=== PATIENT | female | born 2000 | race Caucasian/White ===

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

== ENCOUNTER 2022-04-26 10:39 | Outpatient (CLI) | payer OTHER, SELFPAY ==
--- NOTE | ~2022-04-26 | XR_ITS ---
EXAMINATION: XR foot LT min 3V DATE: 04/26/2022 11:02 INDICATION: Left foot pain TECHNIQUE: Dorsoplantar, lateral, and 2 oblique views of the left foot were obtained. COMPARISON: None. FINDINGS: There is dorsal soft tissue swelling of the foot. Bone alignment is normal. There is no fra cture. The joint spaces are normal. IMPRESSION: 1. Dorsal soft tissue swelling foot without acute osseous abnormalities. Reviewed, dictated and finalized at location F.
== END 2022-04-26 10:40 | disposition home or self-care (01) ==
PROVIDERS: PCP Family Medicine; Visit Provider Family Medicine
DX: S99.922A Unspecified injury of left foot, initial encounter (principal); M79.89 Other specified soft tissue disorders
CPT/HCPCS: 73630

== ENCOUNTER 2022-10-28 11:16 | Outpatient (CLI) | payer OTHER, SELFPAY ==
[2022-10-28 12:35] LABS: Beta HCG Quantitative < 2.39 mIU/ML
== END 2022-10-28 11:17 | disposition home or self-care (01) ==
LOC: ANHLAB 11:18
PROVIDERS: PCP Family Medicine; Visit Provider Obstetrics & Gynecology
DX: Z30.42 Encounter for surveillance of injectable contraceptive (principal)
CPT/HCPCS: 36415; 84702

== ENCOUNTER 2023-09-05 14:07 | Emergency (ER) | payer OTHER, SELFPAY ==
--- NOTE | ~2023-09-05 | CT_ITS ---
EXAMINATION: CT chest abdomen pelvis w con DATE: 09/05/2023 16:26 CDT INDICATION: Chest, abdomen and pelvic pain after fall off horse TECHNIQUE: Computed tomography (CT) of the chest, abdomen, and pelvis was performed with 100 cc Omnip aque 350 intravenous contrast. The dose-length product was 353.30 mGy-cm. Automated exposure control and iterative reconstruction technique were employed. COMPARISON: None FINDINGS: CHEST, abdomen and pelvis CT: No thoracic lymphadenopathy. No significant pleural or pericardial effusion. No vascular abnormality. There is a retroaortic left renal vein. The liver, spleen, pancreas, adrenal glands and left kidney are unremarkable. 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 No endobronchial lesions. No pneumothorax. No focal airspace consolidation. No suspicious pulmonary n odules or masses. No evidence for aortic aneurysm or dissection. No abdominal or pelvic lymphadenopat hy. No free air or free fluid. Nonobstructive bowel gas pattern. No acute osseous abnormality. IMPRESSION: 1. No acute abnormality of the chest, abdomen or pelvis. Reviewed, dictated and finalized at location A.
[2023-09-05 14:13] VITALS: BP 111/78; PULSE 95; RESP 16; TEMP 36.6; O2SAT 100
--- NOTE | 2023-09-05 15:45 | ED.GENADULT ---
HPI - General Adult General Chief complaint: Unspecified Stated complaint: fell off a horse Time Seen by Provider: 09/05/23 15:35 Source: patient Mode of arrival: ambulatory Limitations: no limitations History of Present Illness HPI narrative: This is a 23 year old female that presents to the ER after falling off a horse. Reports she was bucked off a horse this afternoon. Reports landing on her right side. She did not hit her head or lose consciousness. Reports right sided abdominal pain and chest pain. Denies vision changes, vomiting, numbness or weakness. Related Data Home Medications Medication Instructions Recorded Confirmed calcium carbonate 500 mg calcium 500 mg PO DAILY 01/21/23 06/03/23 (1,250 mg) tablet cholecalciferol (vitamin D3) 25 25 mcg PO DAILY 01/21/23 06/03/23 mcg (1,000 unit) capsule levetiracetam 500 mg tablet 500 mg PO Q12H 06/03/23 06/03/23 (Keppra) Allergies Allergy/AdvReac Type Severity Reaction Status Date / Time No Known Allergies Allergy Verified 06/03/23 10:54 Review of Systems Review of Systems: CONSTITUTIONAL: Denies fever EYES: Denies visual changes CARDIOVASCULAR: Reports chest pain RESPIRATORY: Denies dyspnea. GASTROINTESTINAL: Reports abdominal pain. Denies nausea, vomiting MUSCULOSKELETAL: Denies back pain, joint pain, or myalgia. All systems reviewed & are unremarkable except as noted in HPI and below PMFSH Past Medical History Medical History Catamenial epilepsy Seizures Surgical History Surgical History No significant past surgical history Social History Social History Social History: Student Smoking status: Never smoker Second hand tobacco smoke exposure: No Alcohol intake: never Substance use: never Substance use type: does not use Lack of Transportation: No Lack of Food: Never True Current Housing: I Have Housing Concerned About Future Housing: No Difficulty Paying Gas/Electric Bills: No Difficulty Paying for Meds: No Currently Unemployed: No Education: High School Diploma/GED Living arrangements: with family Occupation/Education: student Gender identity (if verbalized by the patient): Female Sexual Orientation (if Verbalized by the Patient): Straight or Heterosexual Spiritual care concerns: No Exam Narrative: GENERAL: Well-appearing, well-nourished, and in no acute distress. HEAD: Normocephalic, atraumatic. EYES: PERRLA and EOMI. ENT: Nares clear, no rhinorrhea or epistaxis. Mucous membranes moist. Oropharynx without tonsillar hypertrophy exudate or other lesions. Bilateral TMs pearly neil non-bulging NECK: Supple. No adenopathy or masses. No midline spinal tenderness CHEST: Clear to auscultation. No respiratory distress. No wheezes rales or rhonchi HEART: Regular rate and rhythm. No murmur heard. Normal peripheral pulses. ABDOMEN: Soft, nondistended, normal active bowel sounds. Tender to palpation throughout the right side of the abdomen, without guarding BACK: No midline spinal tenderness EXTREMITIES: Normal range of motion. No edema or obvious deformity. SKIN: Warm, dry, no rash. NEURO: No focal deficits. Alert and oriented x3. CN II-XII grossly intact PSYCH: Normal mood and affect Course Course Emergency Course: Patient updated on work-up and agrees with plan of care Vital Signs Vital signs: Vital Signs Temperature 97.8 F 09/05/23 14:13 Pulse Rate 95 09/05/23 14:13 Respiratory Rate 16 09/05/23 14:13 Blood Pressure 111/78 09/05/23 14:13 Pulse Oximetry 100 09/05/23 14:13 Oxygen Delivery Room Air 09/05/23 14:13 Temperature 97.8 F 09/05/23 14:13 Pulse Rate 80 09/05/23 15:54 Respiratory Rate 18 09/05/23 15:54 Blood Pressure 108/71 09/05/23 15:54 Pulse Oximetry 100 09/05/23 15:54 Oxygen Delivery R
[2023-09-05 15:52] LABS: Basophils Percent Auto 0.3 % (0.2-1.2); Eosinophils Absolute Auto 0.1 K/mm3 (0-0.3); Eosinophils Percent Auto 0.4 % (0-4.4); Hematocrit 40.7 % (37.0-47.0); Hemoglobin 13.6 g/dL (12.0-15.0); Immature Granulocyte Absolute 0.05 K/mm3 (0.00-0.031); Immature Granulocyte Percent A 0.4 % (0-0.5); Lymphocytes Absolute Auto 1.96 K/mm3 (0.9-3.2); Lymphocytes Percent Auto 17.4 % (18.3-44.2); Mean Corpuscular HGB Conc 33.4 g/dl (32-36); Mean Corpuscular Hemoglobin 30.1 pg (26-34); Mean Platelet Volume 9.9 fl (7.4-10.4); Monocytes Absolute Auto 0.8 K/mm3 (0.1-0.6); Neutrophils Absolute Auto 8.4 K/mm3 (1.3-6.7); Neutrophils Percent Auto 74.5 % (45.5-73.1); Platelet Count Result 211 k/mm3 (150-375); Red Blood Count 4.52 M/mm3 (4.2-5.4); Red Cell Distribution Width 11.9 % (11.5-14.5); White Blood Count 11.3 K/mm3 (4.5-10.0)
[2023-09-05 15:54] VITALS: BP 108/71; PULSE 80; RESP 18; O2SAT 100
[2023-09-05 16:02] LABS: Alanine Aminotransferase 93 U/L (6-35); Albumin Level 4.5 g/dL (3.5-5.1); Alkaline Phosphatase 49 U/L (38-126); Anion Gap 9 mmol/L (8-16); Aspartate Amino Transferase 114 U/L (14-36); Bilirubin,Total 0.5 mg/dL (0.2-1.3); Blood Urea Nitrogen 12 mg/dL (7-17); Carbon Dioxide 21 mmol/L (22-30); Chloride 110 mmol/L (98-107); Estimated CRCL calculation 69 ml/min; Estimated Glomerular Filt Rate > 60; Glucose 90 mg/dL (65-110); Potassium 3.9 mmol/L (3.4-5.0); Sodium 140 mmol/L (137-145)
[2023-09-05 16:03] LABS: INR 1.1; Prothrombin Time 14.6 Seconds (11.1-14.7)
[2023-09-05 16:04] LABS: Partial Thromboplastin Time 28.3 SECONDS (22.3-36.8)
== END 2023-09-05 18:07 | disposition home or self-care (01) ==
PROVIDERS: Emergency Provider Physician Assistant; PCP Family Medicine
DX: S39.91XA Unspecified injury of abdomen, initial encounter (principal); S29.9XXA Unspecified injury of thorax, initial encounter; V80.010A Animal-rider injured by fall from or being thrown from horse in noncollision accident, initial encounter
CPT/HCPCS: 36415; 71260; 74177; 80053; 81025; 85025; 85610; 85730; 99284; Q9967

== ENCOUNTER 2023-09-29 16:54 | Outpatient (CLI) | payer OTHER, SELFPAY ==
--- NOTE | ~2023-09-29 | XR_ITS ---
Left ankle Technique: AP, oblique, and lateral views were obtained. Clinical History: Pain Findings: No acute fracture or dislocation is seen. Osseous alignment is anatomic. Ankle mortise and other visualized joint spaces are preserved. Soft tissues are otherwise unremarkable. Impression: Unremarkable left ankle. Reviewed, dictated and finalized at location . RNET ASSESSOR Impression: Unremarkable left ankle.
== END 2023-09-29 16:55 | disposition home or self-care (01) ==
PROVIDERS: PCP Family Medicine; Visit Provider Physician Assistant
DX: S93.402A Sprain of unspecified ligament of left ankle, initial encounter (principal); X58.XXXA Exposure to other specified factors, initial encounter
CPT/HCPCS: 73610

== ENCOUNTER 2024-12-26 16:17 | Emergency (ER) | payer OTHER, SELFPAY ==
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
--- NOTE | ~2024-12-26 | CT_ITS ---
Noncontrast CT scan of the cervical spine Technique: Multiple contiguous axial [address] images of the cervical spine were obtained and rec onstructed in 2D sagittal and coronal planes on the acquisition scanner. Dose reduction technique was used on this scan by utilizing automated exposure control, adjustment of the mA and/or kV according to patient size. The dose-length product (DLP) was 106.58 mGy-cm. Clinical History: Pain Findings: No fractures or dislocations. Unremarkable visualized bony structures. The intervertebral disc spaces are preserved. No prevertebral soft tissue swelling. Impression: No fracture or subluxation of the cervical spine. Reviewed, dictated and finalized at location . E MACHINE HEATER Impression: No fracture or subluxation of the cervical spine.
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
--- OUTSIDE RECORDS SUMMARY | 2024-12-26 16:20 | XMS_ITS | Patient Health Summary ---
Author Organization [facility] [employer] Address [address] [place] [address] Care Team Providers Care Publishing Agent Name Role Phone Tiki Jacobs MD Primary Care Provider U bonita Note from [facility],non-owned Affiliates and Associated Physician Practices is amultiple site organization consisting of ambulatory clinics and hospital sitesin [place], [place], [place] and [place]. This disclosure is being madepursuant to the Care Everywhere program and may not contain all information available regarding this patient. Last updated 18.[facility] [employer] Allergies No known active allergies Medications * Be aware that medications may not be up to date on this document. Alwaysverify current medications with the patient. * medroxyPROGESTERone (DEPO-PROVERA) 150 MG/ML vial(Started 04/19/2021) INJECT 1 ML IN THE MUSCLE EVERY 3 MONTHS * pyridoxine (Vitamin B-6) 100 MG tablet(Started 09/18/2023) Take 1 (one) tablet by mouth once daily 11 refills by 09/17/2024 * levETIRAcetam CR 24hr (Keppra XR) 500 MG tablet(Started 09/07/2024) Take 3 (three) tablets by mouth 2 times daily 11 refills by 09/07/2025 * acetaZOLAMIDE (Diamox) 125 MG tablet(Started 09/07/2024) TAKE 2 TABLETS BY MOUTH EVERY DAY AFTER LUNCH AND 2 TABLETS AT BEDTIME 5 refills by 09/07/2025 Active Problems Problem Noted Date Diagnosed Date Autoimmune thyroiditis 09/24/2018 Seizures 06/01/2018 Partial epilepsy with impair ment of consciousness, intractable Social History Tobacco Use Types Packs/Day Years Used Date Smoking Tobacco: Never Passive Smoke Exposure: Never Smokeless Tobacco: Never Alcohol Use Standard Drinks/Week Comments Never 0 (1 standard drink = 0.6 oz pur e alcohol) Sex and Gender Information Value Date Recorded Sex Assigned at Female 04/10/2023 12:28 PM CDT Gender Identity Not on file Sexual Orientation Not on file Last Filed Vital Signs Vital Sign Reading Time Taken Comments Blood Pressure 97/67 09/07/2024 12:51 PM CDT Pulse 90 09/07/2024 12:51 PM CDT Temperature 37 ??C (98.6 ??F) 03/18/2023 2:01 PM CDT Respiratory Rate 15 07/01/2023 3:18 PM CDT Oxygen Saturation 97% 09/07/2024 12:51 PM CDT Inhaled Oxygen Concentration - - Weight 58.3 kg (128 lb 8 oz) 09/07/2024 12:51 PM CDT Height 170.2 cm (5' 7 ) 09/07/2024 12:51 PM CDT Body Mass Index 20.13 09/07/2024 12:51 PM CDT Procedures * US PELVIS COMPLETE(Performed 09/07/2024) Performed for Secondary amenorrhea * LAB RESULTS ORDER(Performed 07/07/2023) * COMPREHENSIVE METABOLIC PANEL(Performed 07/02/2023) Performed for Seizures (HCC) * CBC W AUTO DIFFERENTIAL(Performed 07/02/2023) Performed for Seizures (HCC) * LEVETIRACETAM LEVEL(Performed 07/02/2023) Performed for Seizures (HCC) * US THYROID(Performed 04/10/2023) 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 * OXCARBAZEPINE BLOOD(Performed 03/13/2023) Performed for Partial epilepsy with impairment of consciousness, intractable (HCC) * ACETAZOLAMIDE LEVEL(Performed 03/13/2023) Performed for Partial epilepsy with impairment of consciousness, intractable (HCC) * RENAL FUNCTION PANEL(Performed 03/13/2023) Performed for Partial epilepsy with impairment of consciousness, intractable (HCC) * HEPATIC FUNCTION PANEL(Performed 03/13/2023) Performed for Partial epilepsy with impairment of consciousness, intractable (HCC) * CBC W AUTO DIFFERENTIAL(Performed 03/13/2023) Performed for Partial epilepsy with impairment of consciousness, intractable (HCC) * BASIC METABOLIC PANEL (CALCIUM TOTAL)(Performed 07/18/2022) Performed for Partial epilepsy with impairment of consciousness, intractable (HCC) * BASIC METABOLIC PANEL (CALCIUM TOTAL)(Performed 04/24/2022) Performed for Partial epilepsy with impairment of consciousness, intractable (HCC) * OXCARBAZEPINE BLOOD(Performed 03/20/2019) Performed for Medication monitoring encounter * TSH(Performed 03/18/2019) Performed for Autoimmune thyroiditis * T3 TOTAL(Performed 03/18/2019) Performed for Autoimmune thyroiditis * T4 FREE(Performed 03/18/2019) Performed for Autoimmune thyroiditis * THYROID AB PANEL (TPO AB+THYROGLOB AB)(Performed 03/18/2019) Performed for Autoimmune thyroiditis * PROGESTERONE(Performed 10/02/2018) Performed for Partial epilepsy with impairment of consciousness, intractable (HCC) * ESTRADIOL(Performed 10/02/2018) Performed for Partial epilepsy with impairment of consciousness, intractable (HCC) * PROGESTERONE(Performed 09/24/2018) Performed for Partial epilepsy with impairment of consciousness, intractable (HCC) * ESTRADIOL(Performed 09/24/2018) Performed for Partial epilepsy with impairment of consciousness, intractable (HCC) * EEG VIDEO MONITORING ONE DAY(Performed 06/01/2018) * OXCARBAZEPINE BLOOD(Performed 02/20/2018) Performed for Partial symptomatic epilepsy with complex partial seizures, not intractable, without status epilepticus (HCC) * MRI BRAIN WWO CONTRAST(Performed 02/20/2018) Performed for Partial symptomatic epilepsy with complex partial seizures, not intractable, without status epilepticus (HCC) * T3 TOTAL(Performed 12/10/2017) Performed for Autoimmune thyroiditis * TSH(Performed 12/10/2017) Performed for Autoimmune thyroiditis * T4 TOTAL(Performed 12/10/2017) Performed for Autoimmune thyroiditis * MRI BRAIN WO CONTRAST(Performed 11/18/2017) Performed for Syncope and collapse, Laryngospasm, Transient alteration of awareness * EEG AWAKE AND ASLEEP(Performed 11/15/2017) Performed for Syncope and collapse, Laryngospasm * LAB RESULTS ORDER(Performed 06/27/2017) * TSH(Performed 06/04/2017) Performed for Autoimmune thyroiditis * T4 FREE(Performed 06/04/2017) Performed for Autoimmune thyroiditis Results * US Pelvis Complete (09/07/2024 3:55 PM CDT) Anatomical Region Laterality Modality Pelvis Ultrasound 09/07/2024 4:01 PM CDT Impressions 09/07/2024 4:49 PM CDT IMPRESSION: 1. Small ovarian size. 2. Incidentally noted pelvic kidney, the right kidney fossa is empty, normal left kidney. 3. Trace free fluid adjacent to the left ovary. > Dictated by Ubaldo Olmstead MD, (residential aide). Mary Farias MD have personally reviewed and interpreted this examination/study. > Interpreting Provider: Mary Robins MD on 09/07/2024 4:49 PM Narrative 09/07/2024 4:49 PM CDT PROCEDURE: ??US PELVIS COMPLETE, DATE/TIME OF EXAM: ??09/07/2024 4:01 PM, LOCATION ??[facility] INDICATION: N91.1: Secondary amenorrhea ADDITIONAL CLINICAL INFORMATION: Ordering Provider Reason For Exam: ??secondary amenorrhea, verified patient is not sexually active Technologist Note: Additional: COMPARISON: None FINDINGS: Transabdominal: Uterus: 7.6 x 3.1 x 4.5 cm Right ovary: 4.0 x 2.3 x 3.0 cm, volume 15 mL (including the cyst). Left ovary: 3.2 x 1.6 x 2.8 cm, volume 7.5 mL. Transvaginal: Not performed, patient is not sexually active. The ovaries appear normal for the patient's age. There is a 3.0 x 2.2 x 2.4 cm cyst in the right ovary. ??There is no evidence of ovarian torsion. The uterus appears normal. The endometrial bilayer thickness measures 4.4 mm, which is within normal limits for phase of menstrual cycle. No free fluid is present in the cul-de-sac. There is trace free fluid adjacent to the left ovary. There is an incidentally noted right pelvic kidney. The right renal fossa does not contain a kidney. The left kidney is located in the left renal fossa. Procedure Note Cherelle Robins MD - 09/07/2024 PROCEDURE: US PELVIS COMPLETE, DATE/TIME OF EXAM: 09/07/2024 4:01 PM, LOCATION [facility] INDICATION: N91.1: Secondary amenorrhea ADDITIONAL CLINICAL INFORMATION: Ordering Provider Reason For Exam: secondary amenorrhea, verifiedpatient is not sexually active Technologist Note: Additional: COMPARISON: None FINDINGS: Transabdominal: Uterus: 7.6 x 3.1 x 4.5 cm Right ovary: 4.0 x 2.3 x 3.0 cm, volume 15 mL (including the cyst). Left ovary: 3.2 x 1.6 x 2.8 cm, volume 7.5 mL. Transvaginal: Not performed, patient is not sexually active. The ovaries appear normal for the patient's age. There is a 3.0 x 2.2 x2.4 cm cyst in the right ovary. There is no evidence of ovarian torsion. The uterus appears normal. The endometrial bilayer thickness measures4.4 mm, which is within normal limits for phase of menstrual cycle. No free fluid is present in the cul-de-sac. There is trace free fluid adjacentto the left ovary. There is an incidentally noted right pelvic kidney. The right renalfossa does not contain a kidney. The left kidney is located in the left renal fossa. IMPRESSION: 1. Small ovarian size. 2. Incidentally noted pelvic kidney, the right kidney fossa is empty, normal left kidney. 3. Trace free fluid adjacent to the left ovary. > Dictated by Ubaldo Olmstead MD, (residential aide). I, Mary Robins MD have personally reviewed and interpreted this examination/study. > Interpreting Provider: Mary Robins MD on 09/07/2024 4:49 PM Tiki Jacobs MD ORDERABLES * LAB RESULTS ORDER (07/07/2023) Only the most recent of2 resultswithin the time period is included. 07/07/2023 Narrative 07/07/2023 Ordered by an unspecified provider. Scanned Document LAB - THERAPEUTIC DR MERINO MONITORING ORDERABLES * LEVETIRACETAM LEVEL (07/02/2023 10:42 AM CDT) Levetiracetam 13.3 10.0 - 40.0 ug/mL [facility] INSURANCE BILL Blood BLOOD SPECIMEN / Unknown 07/02/2023 10:42 AM CDT 07/02/2023 Narrative Resulting Agency Comment Lab Testing performed at: [facility] [address] ??[facility] [id number] Romina Méndez PA-C LAB - THERAPEUTIC DR MERINO MONITORING ORDERABLES [facility] INSURANCE BILL [address] [place] [address] * CBC WITH DIFFERENTIAL (07/02/2023 10:42 AM CDT) Only the most recent of2 resultswithin the time period is included. WBC 6.9 3.4 - 10.8 x10E3/uL [facility] INSURANCE BILL RBC 4.30 3.77 - 5.28 x10E6/uL [facility] INSURANCE BILL Hemoglobin 13.2 11.1 - 15.9 g/dL [facility] INSURANCE BILL Hematocrit 39.4 34.0 - 46.6 % [facility] INSURANCE BILL MCV 92 79 - 97 fL [facility] INSURANCE BILL MCH 30.7 26.6 - 33.0 pg [facility] INSURANCE BILL MCHC 33.5 31.5 - 35.7 g/dL [facility] INSURANCE BILL RDW 11.8 11.7 - 15.4 % [facility] INSURANCE BILL Platelet Count 246 150 - 450 x10E3/uL [facility] INSURANCE BILL Granulocytes % 54 Not Estab. % [facility] INSURANCE BILL Lymphocytes % 34 Not Estab. % [facility] INSURANCE BILL Monocytes % 8 Not Estab. % [facility] INSURANCE BILL Eosinophils % 4 Not Estab. % [facility] INSURANCE BILL Basophils % 0 Not Estab. % [facility] INSURANCE BILL Immature Cells NOT AVAILABLE [facility] INSURANCE BILL Comment:Result cannot be obt ained for this observation. Granulocytes Absolute 3.8 1.4 - 7.0 x10E3/uL [facility] INSURANCE BILL Lymphocytes Absolute 2.3 0.7 - 3.1 x10E3/uL [facility] INSURANCE BILL Monocytes Absolute 0.5 0.1 - 0.9 x10E3/uL [facility] INSURANCE BILL Eosinophils Absolute 0.2 0.0 - 0.4 x10E3/uL [facility] INSURANCE BILL Basophils Absolute 0.0 0.0 - 0.2 x10E3/uL [facility] INSURANCE BILL Immature Granulocytes 0 Not Estab. % [facility] INSURANCE BILL Immature Granulocytes Absolute 0.0 0.0 - 0.1 x10E3/uL [facility] INSURANCE BILL nRBC NOT AVAILABLE [facility] INSURANCE BILL Comment:Result cannot be obt ained for this observation. Comment Hematology NOT AVAILABLE [facility] INSURANCE BILL Comment:Result cannot be obt ained for this observation. 07/02/2023 10:4 2 AM CDT 07/02/2023 Narrative Resulting Agency Comment Lab Testing performed at: [facility] ??[facility] [id number] Romina Méndez PA-C LAB - HEMATOLOGY ORD ERABLES [facility] INSURANCE BILL [address] [place] [address] * (ABNORMAL) COMPREHENSIVE METABOLIC PANEL (07/02/2023 10:42 AM CDT) Glucose 89 70 - 99 mg/dL [facility] INSURANCE BILL BUN 10 6 - 20 mg/dL [facility] INSURANCE BILL Creatinine 0.91 0.57 - 1.00 mg/dL [facility] INSURANCE BILL BUN/Creatinine Ratio 11 9 - 23 [facility] INSURANCE BILL Sodium 143 134 - 144 mmol/L [facility] INSURANCE BILL Potassium 3.8 3.5 - 5.2 mmol/L [facility] INSURANCE BILL Chloride 110(H) 96 - 106 mmol/L [facility] INSURANCE BILL CO2 19(L) 20 - 29 mmol/L [facility] INSURANCE BILL Calcium 9.5 8.7 - 10.2 mg/dL [facility] INSURANCE BILL Protein Total 7.7 6.0 - 8.5 g/dL [facility] INSURANCE BILL Albumin 4.8 4.0 - 5.0 g/dL [facility] INSURANCE BILL Globulin Total 2.9 1.5 - 4.5 g/dL [facility] INSURANCE BILL Albumin/Globulin Ratio 1.7 1.2 - 2.2 [facility] INSURANCE BILL Bilirubin Total 0.2 0.0 - 1.2 mg/dL [facility] INSURANCE BILL Alkaline Phosphatase 55 42 - 106 IU/L [facility] INSURANCE BILL AST 19 0 - 40 IU/L [facility] INSURANCE BILL ALT 18 0 - 32 IU/L [facility] INSURANCE BILL 07/02/2023 10:4 2 AM CDT 07/02/2023 Narrative Resulting Agency Comment Lab Testing performed at: [facility] [place] [address] ??[facility] [id number] Romina Méndez PA-C LAB - CHEMISTRY YARED GUDINO [facility] INSURANCE BILL [address] [place] [address] * US THYROID (04/10/2023 2:44 PM CDT) Anatomical Region Laterality Modality Chest Ultrasound 04/10/2023 2:23 PM CDT Impressions 04/10/2023 2:35 PM CDT IMPRESSION: 1.No suspicious thyroid nodules. 2.Heterogeneous thyroid echotexture with suggestion of hypoechoic micronodularity. The findings are nonspecific in the absence of appropriate clinical history and normal sized thyroid. These findings could be seen in the setting of Wyatt's thyroiditis or less likely Graves' disease. Recommend correlation with thyroid hormone laboratory evaluation and clinical history. > Interpreting Provider: DANIEL RIBEIRO MD on 04/10/2023 2:35 PM Narrative 04/10/2023 2:35 PM CDT PROCEDURE: ??US THYROID DATE/TIME OF EXAM: ??04/10/2023 1:42 PM CLINICAL INFORMATION: None relevant/not provided if blank. 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 TECHNIQUE: Real-time high frequency ultrasound of the thyroid performed by medical technologist chemistry including color Doppler imaging and DICOM image capture. FINDINGS: The right thyroid lobe measures 5.9 x 2.0 x 1.9 cm with a volume of 10 mL. The left thyroid lobe measures 6.0 x 1.5 x 1.6 cm with a volume of 7 mm. The isthmus measures 0.2-0.3 cm in thickness. No discrete large nodules are present. The thyroid is diffusely heterogenous in echogenicity with suggestion of hypoechoic micronodular. The vascularity of the thyroid is diffusely increased bilaterally. No evidence of cervical lymphadenopathy is noted. Procedure Note Daniel Ribeiro MD - 04/10/2023 PROCEDURE: US THYROID DATE/TIME OF EXAM: 04/10/2023 1:42 PM CLINICAL INFORMATION: None relevant/not provided if blank. 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 TECHNIQUE: Real-time high frequency ultrasound of the thyroid performed byultrasound technologist including color Doppler imaging and DICOM image capture. FINDINGS: The right thyroid lobe measures 5.9 x 2.0 x 1.9 cm with a volume of 10mL. The left thyroid lobe measures 6.0 x 1.5 x 1.6 cm with a volume of 7 mm. The isthmus measures 0.2-0.3 cm in thickness. No discrete large nodules are present. The thyroid is diffusely heterogenous in echogenicity with suggestion of hypoechoic micronodular. The vascularity of the thyroid is diffusely increased bilaterally. No evidence of cervical lymphadenopathy is noted. IMPRESSION: 1.No suspicious thyroid nodules. 2.Heterogeneous thyroid echotexture with suggestion of hypoechoic micronodularity. The findings are nonspecific in the absence ofappropriate clinical history and normal sized thyroid. These findings could be seenin the setting of Wyatt's thyroiditis or less likely Graves' disease. Recommend correlation with thyroid hormone laboratory evaluation and clinical history. > Interpreting Provider: DANIEL RIBEIRO MD on 04/10/2023 2:35 PM Tiki Jacobs MD US ORDERABLES * OXCARBAZEPINE BLOOD (03/13/2023 3:11 PM CDT) Only the most recent of3 resultswithin the time period is included. Oxcarbazepine Metabolite 19 10 - 35 ug/mL [facility] INSURANCE BILL Comment: This test was developed and its performance characteristics determined by [facility]. It has not been cleared or approved by the Food and Drug Administration. ? Detection Limit = 1 Blood BLOOD SPECIMEN / Unknown 03/13/2023 3:11 PM CDT 03/13/2023 Narrative Resulting Agency Comment Lab Testing performed at: [facility] ??[facility] [id number] Yury Recinos MD LAB - CHEMISTRY ORDERABLES Performing Organization Address [facility] de Phone Number [facility] INSURANCE BILL [address] [place] [address] * (ABNORMAL) ACETAZOLAMIDE LEVEL (03/13/2023 3:11 PM CDT) Acetazolamide Urine 2.1(L) ug/ml [facility] INSURANCE BILL Comment: ? Expected concentration range in patients ? on anticonvulsant doses of acetazolamide: ? 6.0 - 15.0 ug/ml. This test was developed and its performance characteristics determined by [facility]. It has not been cleared or approved by the Food and Drug Administration. Blood BLOOD SPECIMEN / Unknown 03/13/2023 3:11 PM CDT 03/13/2023 Narrative Resulting Agency Comment Lab Testing performed at: [email or web address] [address] [place] [address] ??[facility] [id number] Yury Recinos MD LAB - CHEMISTRY ORDERABLES Performing Organization Address [facility] de Phone Number [facility] INSURANCE BILL [address] [place] [address] * (ABNORMAL) RENAL FUNCTION PANEL (03/13/2023 3:11 PM CDT) Glucose 124(H) 70 - 99 mg/dL [facility] INSURANCE BILL BUN 6 6 - 20 mg/dL [facility] INSURANCE BILL Creatinine 0.68 0.57 - 1.00 mg/dL [facility] INSURANCE BILL BUN/Creatinine Ratio 9 9 - 23 [facility] INSURANCE BILL Sodium 132(L) 134 - 144 mmol/L [facility] INSURANCE BILL Potassium 4.3 3.5 - 5.2 mmol/L [facility] INSURANCE BILL Chloride 101 96 - 106 mmol/L [facility] INSURANCE BILL CO2 19(L) 20 - 29 mmol/L [facility] INSURANCE BILL Calcium 9.4 8.7 - 10.2 mg/dL [facility] INSURANCE BILL Phosphorus 3.2 3.0 - 4.3 mg/dL [facility] INSURANCE BILL Albumin 4.9 3.9 - 5.0 g/dL [facility] INSURANCE BILL Blood BLOOD SPECIMEN / Unknown 03/13/2023 3:11 PM CDT 03/13/2023 Narrative Resulting Agency Comment Lab Testing performed at: [facility] [address] ??[facility] [id number] Yury Recinos MD LAB - CHEMISTRY ORDERABLES Performing Organization Address City/[facility] Co de Phone Number [facility] INSURANCE BILL [address] [place] [address] * HEPATIC FUNCTION PANEL (03/13/2023 3:11 PM CDT) Protein Total 7.2 6.0 - 8.5 g/dL [facility] INSURANCE BILL Bilirubin Total <0.2 0.0 - 1.2 mg/dL [facility] INSURANCE BILL Bilirubin Direct <0.10 0.00 - 0.40 mg/dL [facility] INSURANCE BILL Alkaline Phosphatase 62 42 - 106 IU/L [facility] INSURANCE BILL AST 24 0 - 40 IU/L [facility] INSURANCE BILL ALT 23 0 - 32 IU/L [facility] INSURANCE BILL Blood BLOOD SPECIMEN / Unknown 03/13/2023 3:11 PM CDT 03/13/2023 Narrative Resulting Agency Comment Lab Testing performed at: [email or web address] [address] ??[facility] [id number] Yury Recinos MD LAB - CHEMISTRY ORDERABLES Performing Organization Address City/[facility] Co de Phone Number [facility] INSURANCE BILL [address] [place] [address] * (ABNORMAL) BASIC METABOLIC PANEL (CALCIUM TOTAL) (07/18/2022 9:18 AM CDT) Only the most recent of2 resultswithin the time period is included. Glucose 90 65 - 99 mg/dL [facility] INSURANCE BILL BUN 9 6 - 20 mg/dL [facility] INSURANCE BILL Creatinine 0.82 0.57 - 1.00 mg/dL [facility] INSURANCE BILL BUN/Creatinine Ratio 11 9 - 23 [facility] INSURANCE BILL Sodium 134 134 - 144 mmol/L [facility] INSURANCE BILL Potassium 3.8 3.5 - 5.2 mmol/L [facility] INSURANCE BILL Chloride 100 96 - 106 mmol/L [facility] INSURANCE BILL CO2 19(L) 20 - 29 mmol/L [facility] INSURANCE BILL Calcium 9.4 8.7 - 10.2 mg/dL [facility] INSURANCE BILL Blood BLOOD SPECIMEN / Unknown 07/18/2022 9:18 AM CDT 07/18/2022 Narrative Resulting Agency Comment Lab Testing performed at: [address] ??[facility] [id number] Yury Recinos MD LAB - CHEMISTRY ORDERABLES Performing Organization Address [facility] Co de Phone Number [facility] INSURANCE BILL [address] [place] [address] * (ABNORMAL) THYROID AB PANEL (TPO AB+THYROGLOB AB) (03/18/2019 11:55 AM CDT) Thyroid Peroxidase TPO Antibody 173(H) 0 - 26 IU/mL 03/19/2019 1:09 PM CDT [facility] ([facility]) Thyroglobulin Antibody 37.7(H) 0.0 - 0.9 IU/mL 03/19/2019 1:09 PM CDT [facility]) Comment:Thyroglobulin Antibo dy measured by Mariposa Rowan Methodology Blood BLOOD SPECIMEN / Unknown Lab Venipuncture / Unknown 03/18/2019 11:55 AM CDT 03/18/2019 12:21 PM CDT Narrative [facility] ([facility]) - 03/19/2019 1:09 PM CDT Performed at: ??[address], [place], [place] ??[id number] Extension Division Director: Devyn Hu PhD, Phone: ??[phone] Amos Pemberton MD LAB - CHEMISTRY YARED GUDINO Performing Organization Address City/[facility]/ZIP Co de Phone Number [facility]) [address] [place] [address] * TSH (03/18/2019 11:55 AM CDT) Only the most recent of3 resultswithin the time period is included. TSH 1.57 0.35 - 4.95 uIU/mL 03/18/2019 1:57 PM CDT [facility] Blood BLOOD SPECIMEN / Unknown Lab Venipuncture / Unknown 03/18/2019 11:55 AM CDT 03/18/2019 12:22 PM CDT Amos Pemberton MD LAB - CHEMISTRY YARED GUDINO Performing Organization Address [facility] Co de Phone Number [facility] [address] [place] [address] * T4 FREE (03/18/2019 11:55 AM CDT) Only the most recent of2 resultswithin the time period is included. Pathologist [facility] T4 Free 0.95 0.70 - 1.48 ng/dL 03/18/2019 1:31 PM CDT [facility] Blood BLOOD SPECIMEN / Unknown Lab Venipuncture / Unknown 03/18/2019 11:55 AM CDT 03/18/2019 12:21 PM CDT Amos Pemberton MD LAB - CHEMISTRY YARED GUDINO Performing Organization Address [facility] Co de Phone Number [facility] [address] [place] [address] * T3 TOTAL (03/18/2019 11:55 AM CDT) Only the most recent of2 resultswithin the time period is included. T3 Total 0.74 0.70 - 1.90 ng/mL 03/18/2019 6:16 PM CDT [facility] Blood BLOOD SPECIMEN / Unknown Lab Venipuncture / Unknown 03/18/2019 11:55 AM CDT 03/18/2019 12:21 PM CDT Amos Pemberton MD LAB - CHEMISTRY YARED GUDINO [facility] [address] [place] [address] * PROGESTERONE (10/02/2018 10:55 AM BALLISTICS TEACHER) Only the most recent of2 resultswithin the time period is included. Progesterone <0.1 ng/mL [facility] INSURANCE BILL Comment: ?Follicular phase ? 0.1 - ?? 0.9 ?Luteal phase ? 1.8 - ??23.9 ?Ovulation phase ?0.1 - ??12.0 ? First trimester ?11.0 - ??44.3 ? Second trimester ?? 25.4 - ??83.3 ? Third trimester ?58.7 - 214.0 ?Postmenopausal ? 0.0 - ?? 0.1 FASTING Blood BLOOD SPECIMEN / Unknown 10/02/2018 10:55 AM BALLISTICS TEACHER 10/02/2018 Narrative Resulting Agency Comment [facility] [place] [address] ??[place] [id number] Amos Pemberton MD LAB - CHEMISTRY YARED GUDINO [facility] INSURANCE BILL [address] [place] [address] * ESTRADIOL (10/02/2018 10:54 AM BALLISTICS TEACHER) Only the most recent of2 resultswithin the time period is included. Estradiol 26.2 pg/mL [facility] INSURANCE BILL Comment: ? Adult Female: ? Follicular phase ?? 12.5 - ?? 166.0 ? Ovulation phase ?85.8 - ?? 498.0 ? Luteal phase ? 43.8 - ?? 211.0 ? Postmenopausal ? <6.0 - ?54.7 ? 1st trimester ? 215.0 - >4300.0 ? Girls (1-10 years) ?6.0 - ?27.0 Danica [employer]CL[employer] methodology FASTING Blood BLOOD SPECIMEN / Unknown 10/02/2018 10:54 AM BALLISTICS TEACHER 10/02/2018 Narrative Resulting Agency Comment [facility] [place] [address] ??[facility] [id number] Amos Pemberton MD LAB - CHEMISTRY YARED [facility] [employer] BILL [address] [place] [address] * EEG VIDEO MONITORING ONE DAY (06/01/2018 12:00 PM CDT) 06/01/2018 12:0 0 PM CDT Narrative Procedure Note Louie Gay MD - 06/04/2018 12:59 PM CDT [address] [phone] CLINICAL NEUROPHYSIOLOGY NAME: LUANA CEJA : 2000 ADDRESS: [address] [place] [address] UNIT #: [id number] CSN #: [id number] DATE OF TEST: 06/01/2018 LINUX UNIX SYSTEM ADMINISTRATOR: LOUIE GAY MD EXTENDED CONTINUOUS VIDEO EEG MONITORING REPORT DATES OF TESTIN06/01/2018 at 1621 through 06/04/2018 at 1239. DURATION OF MONITORIN hours 45 minutes. LOCATION: Epilepsy monitoring unit. REASON FOR VIDEO EEG MONITORING: EEG monitorin hours and 45 minutes of continuous video andelectroencephalographic recording are performed on this 17-year-old girlin evaluation of seizures treated with Trileptal. She has recurrentevents despite treatment, so the recording is performed to localize theseizure focus to determine whether she is a candidate for advancedtreatment, including resective surgery. Her seizures are described asbeginning with tingling in the right arm, followed by developing a chokingsensation with changes in respiration and drooling, and variable loss ofawareness and other associated symptoms. Trileptal is held during therecording. A previous routine EEG that was wake only in October 2017 wasabnormal, showing occipital intermittent rhythmic delta. CONDITIONS OF RECORDING: Continuous video EEG monitoring was performed using electrodes placedaccording to the International 10-20 system, including ECG monitoring.Photic stimulation and hyperventilation were performed during therecording. The entire recording was reviewed using routine visualinspection by the attending physician. Caregivers were instructed to pushan event marker button for all suspected seizures and to maintain awritten log of events. DESCRIPTION: BACKGROUND: Waking background shows good organization, including a medium amplitude(40-80 microvolt) continuous, symmetric, rhythmic posterior 10 Hz alphawith mixed semirhythmic faster and slower patterns more anteriorly. Inlight sleep, vertex transients, spindles, and K-complexes develop. Highamplitude slow delta patterns predominate deeper sleep. There areintermittent arousals from sleep, showing rhythmic theta activity when thearousals from N1 or N2 and in the delta range with N3 arousals. ACTIVATION PROCEDURES: Photic stimulation produces no abnormalities. Hyperventilation produces a buildup of diffuse theta and delta slowing. EPILEPTIFORM FEATURES: There are frequent sleep-activated broad-based sharp forms, reaching 150microvolts in amplitude in the frontal areas, maximum in the lefthemisphere, highest in amplitude at the FP1 electrode. There isoccasional phase reversal at F7 or F3. FP2 is also involved to a lesserdegree. These discharges occasionally organize and become pseudoperiodicevery 1-2 seconds for several seconds at a time, but show no outwardclinical correlate. In reviewing the background, there are several arousals that aresuspicious for possible frontal epileptic type. Examples on 06/01/2018 [id number], 06/02/2018 at 0719, and 06/04/2018 at 0501. Her preferred sleepposition is on the right side. With these events, she repositions tosupine, eyes open, there is variable stretching movements including briefdystonic posturing of the right or left hand, occasionally with a nose rubat the beginning of the arousal, without thrashing or other rhythmic motormovements, and no indication of respiratory changes or appearing choked.These are not therefore her typical events. The electrographic correlatefor these events is concerning for frontal seizure. Some of the arousalsare heralded by a buildup of the background left frontal predominant sharpforms that becomes pseudoperiodic leading into the event, and then atleast one occasion are pseudoperiodic devolving out of the event.Duration ranges 10-60 seconds electrographically. During the event, thereis bifrontal left predominant rhythmic 1 hertz delta along with theta andother frequency rhythms intermingled. CLINICAL EVENTS: None of the patient's characteristic events wererecorded. She did complain of vague symptoms that she reports arepostictal type upon awakening on the morning of 06/02, around 8 p.m. on06/03, and around midnight on 06/03. There were no electrographicseizures seen during these times. 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 Her mostcharacteristic events were not recorded during this monitoring session.There were several arousals from N3 sleep that had electrographiccharacteristics suspicious for left frontal seizures. Comparison with the previous routine EEG from 10/2017 is difficult becausethat study did not include sleep. The occipital intermittent rhythmicdelta activity seen in the first recording was not appreciated in thisone. Dictated By: LOUIE GAY MD Pediatric Neurologist GF/MedQ JOB ID: [id number] cc: Dr. Recinos CLINICAL NEUROPHYSIOLOGY Anastasiia Carmichael MD NEUROLOGY ORDERABLES [facility] * MRI BRAIN WITH AND WITHOUT CONTRAST (02/20/2018 1:46 PM CDT) Anatomical Region Laterality Modality Head Magnetic Resonan ce 02/20/2018 6:39 PM CDT Narrative 02/20/2018 11:40 PM CDT FINAL REPORT EXAM: ??MRI BRAIN WWO CONTRAST HISTORY: ??Localization-related (focal) (partial) symptomatic epilepsy and epileptic syndromes with complex partial seizures, not intractable, without status epilepticus TECHNIQUE: ??Multisequential pre and post IV contrast MRI of the brain was performed. PRIORS: ??11/18/2017. FINDINGS: ?? Stable 2.5 mm focus of T1 hypointensity/T2 hyperintensity in the subcortical white matter of the right temporal lobe, without postcontrast enhancement. The brain is otherwise preserved in signal intensity. The ventricles are preserved in size and configuration. There is no mass, hemorrhage, or acute infarction. There is no abnormal enhancement. No focal diffusion abnormality is present. No abnormal extracerebral collections are present. The orbital contents are without abnormality. The visualized paranasal sinuses and mastoid air cells are clear. IMPRESSION: ?? Stable 2.5 mm focus of nonenhancing T1 hypointensity/T2 hyperintensity in the subcortical white matter of the right temporal lobe. Considerations include focus of gliosis related to prior insult versus heterotopic neil matter. Procedure Note Devang Mares MD - 02/20/2018 FINAL REPORT EXAM: MRI BRAIN WWO CONTRAST HISTORY: Localization-related (focal) (partial) symptomatic epilepsy and epileptic syndromes with complex partial seizures, not intractable,without status epilepticus TECHNIQUE: Multisequential pre and post IV contrast MRI of the brain was performed. PRIORS: 11/18/2017. FINDINGS: Stable 2.5 mm focus of T1 hypointensity/T2 hyperintensity in thesubcortical white matter of the right temporal lobe, without postcontrast enhancement.The brain is otherwise preserved in signal intensity. The ventricles are preserved in size and configuration. There is no mass, hemorrhage, or acute infarction. There is no abnormal enhancement. No focal diffusion abnormality is present. No abnormal extracerebral collections are present. The orbital contents are without abnormality. The visualized paranasal sinuses and mastoid air cells are clear. IMPRESSION: Stable 2.5 mm focus of nonenhancing T1 hypointensity/T2 hyperintensity inthe subcortical white matter of the right temporal lobe. Considerationsinclude focus of gliosis related to prior insult versus heterotopic neil matter. Christopher Oliveros MD MR ORDERABLES * T4 TOTAL (12/10/2017 4:41 PM BALLISTICS TEACHER) T4 Total 6.26 4.87 - 11.7 ug/dL 12/10/2017 6:24 PM BALLISTICS TEACHER [facility] Blood BLOOD SPECIMEN / Unknown 12/10/2017 4:41 PM BALLISTICS TEACHER 12/10/2017 5:20 PM BALLISTICS TEACHER Amos Pemberton MD LAB - CHEMISTRY YARED GUDINO [facility] [address] [place] [address] * MRI BRAIN NON CONTRAST (11/18/2017 10:39 AM BALLISTICS TEACHER) Anatomical Region Laterality Modality Head Magnetic Resonan ce 11/18/2017 10:3 6 AM BALLISTICS TEACHER Impressions 11/18/2017 10:52 AM BALLISTICS TEACHER 1. Small focus of T1 hypointensity and T2 hyperintensity which appears to follow neil matter signal in the subcortical white matter of the right temporal lobe measuring 2.5 mm as described above. Differential considerations include a small focus of cortical neil matter heterotopia, a low-grade tumor, or a small focus of gliosis/sequelae of prior injury. No associated mass effect or surrounding edema is identified. A follow-up brain MRI seizure protocol with and without contrast could be performed to determine stability of this finding. Narrative 11/18/2017 10:52 AM BALLISTICS TEACHER EXAMINATION: Magnetic resonance imaging (MRI) of the brain without contrast HISTORY: Syncope, allowing the spasm, transient alteration of consciousness. TECHNIQUE: MRI of the brain was performed without intravenous gadolinium contrast according to seizure protocol. FINDINGS: No prior study is available for comparison. No evidence of acute or chronic hemorrhage and no evidence of acute cerebral infarction is seen. Ventricles are of normal size, shape, and morphology. There is a small focus of mild T2 hyperintensity and T1 hypointensity in the subcortical white matter of the right temporal lobe (series 9 image 17, series 10 image 90, and series 1001 image 84) which appears to follow neil matter signal on all sequences and measures up to 2.5 mm in diameter. The hippocampi are symmetric in size and signal. The corpus callosum and sella appear normal. The posterior fossa, brainstem, and craniocervical junction appear normal. Other than mild to moderate right frontal, ethmoid, and maxillary sinus disease, the visualized portions of the orbits, mastoids and paranasal sinuses appear normal. Normal flow voids are demonstrated in the carotid arteries and basilar artery. The calvarium and visualized cervical spine appear normal. Procedure Note Fabio Anthony MD - 11/18/2017 EXAMINATION: Magnetic resonance imaging (MRI) of the brain without contrast HISTORY: Syncope, allowing the spasm, transient alteration of consciousness. TECHNIQUE: MRI of the brain was performed without intravenous gadolinium contrast according to seizure protocol. FINDINGS: No prior study is available for comparison. No evidence of acute or chronic hemorrhage and no evidence of acute cerebral infarction is seen. Ventricles are of normal size, shape, and morphology. There is a small focus of mild T2 hyperintensity and T1 hypointensity in the subcortical white matter of the right temporal lobe (series 9 image 17, series 10 image 90, and series 1001 image 84) which appears to follow neil matter signal on all sequences and measures up to 2.5 mm in diameter. The hippocampi are symmetric in size and signal. The corpus callosum and sella appear normal. The posterior fossa, brainstem, and craniocervical junction appear normal. Other than mild to moderate right frontal, ethmoid, and maxillary sinus disease, the visualized portions of the orbits, mastoids and paranasal sinuses appear normal. Normal flow voids are demonstrated in the carotid arteries and basilar artery. The calvarium and visualized cervical spine appear normal. IMPRESSION 1. Small focus of T1 hypointensity and T2 hyperintensity which appears to follow neil matter signal in the subcortical white matter of the right temporal lobe measuring 2.5 mm as described above. Differential considerations include a small focus of cortical neil matter heterotopia, a low-grade tumor, or a small focus of gliosis/sequelae of prior injury. No associated mass effect or surrounding edema is identified. A follow-up brain MRI seizure protocol with and without contrast could be performed to determine stability of this finding. Christopher Oliveros MD MR ORDERABLES * EEG AWAKE AND ASLEEP (11/15/2017 5:02 PM BALLISTICS TEACHER) Narrative [facility] - 11/15/2017 5:02 PM BALLISTICS TEACHER Yury Recinos MD ? 11/15/2017 ??5:02 PM Name: Luana Ceja CSN: [id number] Type: Routine Date of Test: 11/13/2017 Ordering Provider: Christopher Oliveros MD PCP: Tiki Jacobs MD Tennis Court Attendant: Yury Recinos MD Routine EEG Report DESCRIPTION Indication: The EEG is performed in 17 ??y.o. 3 ??m.o. female for evaluation of epileptiform activity. Background: During the awake state with eyes closed the background consists of a 10 Hz posterior dominant rhythm with an amplitude of approximately 50 microvolts which attenuates appropriately with eye opening. ??The recording is continuous. ??There is a well-developed anterior-posterior gradient. ??No significant asymmetries of background activity are noted. Sleep is not captured during the record. Epileptiform activity: No epileptiform activity is noted. Seizures: No seizures were captured during the recording. Activation Procedures: Three minutes of adequate hyperventilation resulted in to activation of occipital intermittent rhythmic delta that goes beyond the hyperventilation. Photic stimulation using a step-dutton increase in photic frequency results in driving responses but no activation of epileptiform activity. EKG: A prolonged lead I EKG rhythm strip approximated a heart rate of 90 beats/minute. INTERPRETATION: This EEG recorded is abnormal in awake state due to occipital intermittent rhythmic delta activity noted during and after hyperventilation. CLINICAL CORRELATION The occipital intermittent rhythmic delta can be associated with generalized or focal onset seizures. Therefore, clinical correlation is recommended. Yury Recinos MD Electrical Wiring Lineman Child Neurology and Epilepsy [facility] Christopher Oliveros MD NEUROLOGY ORDERABL ES [facility] Care Teams Publishing Agent Relationship Specialty Start Date End Date Tiki Jacobs MD [address] [place] [address] PCP - General Family Medicine 04/08/17
--- OUTSIDE RECORDS SUMMARY | 2024-12-26 16:20 | XMS_ITS | Clinical Summary ---
Author Organization [facility] Address [address] [place] [address] Care Team Providers Care Dog Day Care Attendant Name Role Phone Tiki Jacobs MD Primary Care Provider U heriailable Source Comments [facility],non-owned Affiliates and Associated Physician Practices is amultiple site organization consisting of ambulatory clinics and hospital sitesin [place], [place], [place] and [place]. This disclosure is being madepursuant to the Care Everywhere program and may not contain all information available regarding this patient. Last updated 18.[employer] Allergies No known active allergies Medications * Be aware that medications may not be up to date on this document. Alwaysverify current medications with the patient. Medication Sig Dispensed Refills Start Date End Date Status medroxyPROGESTERon e (DEPO-PROVERA) 150 MG/ML vial INJECT 1 ML IN THE MUSCLE EVERY 3 MONTHS 04/19/2021 Active pyridoxine (Vitamin B-6) 100 MG tablet Take 1 (one) tablet by mouth once daily 30 tablet 11 09/18/2023 Active Additional Information Patient not taking.Reported on 09/07/2024 levETIRAcetam CR 24hr (Keppra XR) 500 MG tabletIndications: Seizures (HCC) Take 3 (three) tablets by mouth 2 times daily 180 tablet 11 09/07/2024 Active acetaZOLAMIDE (Diamox) 125 MG tablet TAKE 2 TABLETS BY MOUTH EVERY DAY AFTER LUNCH AND 2 TABLETS AT BEDTIME 120 tablet 5 09/07/2024 Active Active Problems Patient Care Coordination No te Formatting of this note migh t be different from the original. Local Labs to [facility] approval for Oxtellar XR 600 mg tablets from 12/13/2020-12/13/2021 Problem Noted Date Diagnosed Date Autoimmune thyroiditis 09/24/2018 Seizures 06/01/2018 Assessment & Plan (06/03/2018 7:47 PM CDT): Assessment: Meghan Gambino is a 17 y.o. 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 Current drug regimen is Trileptal 600 mg BID. Patient has not had any events since admission and requires more time of continuous monitoring and vEEG. Plan: --VS Q8H --Neuro Checks --Seizure Precautions --Regular Diet --Continue Holding Home medications --Discontinue Monitors --Ativan PRN for seizures >5 minutes Assessment & Plan (06/02/2018 8:00 AM CDT): Assessment: Meghan Gambino is a 17 y.o. 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 Current drug regimen is Trileptal 600 mg BID. Patient has not had any events since admission and requires more time of continuous monitoring and vEEG. Plan: --VS Q8H --Neuro Checks --Seizure Precautions --Regular Diet --Continue Home Medication --Trileptal 600 mg BID Assessment & Plan (06/01/2018 8:37 PM CDT): Assessment: Meghan Gambino is a 17 y.o. 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 Current drug regimen is Trileptal 600 mg BID. Plan: --Admit to Pediatric Neurology, Dr. Gay --VS Q8H --Neuro Checks --Seizure Precautions --Regular Diet --Continue Home Medication --Trileptal 600 mg BID Partial epilepsy with impair ment of consciousness, intractable Assessment & Plan (07/01/2018 9:01 PM CDT): Assessment: Meghan Gambino is a 17 y.o. female who presents for follow up for partial seizures and concern for insular epilepsy. These seizures are subtle and notoriously difficult to capture on EEG, and intermittent episodes still suggest that she is sub- optimally controlled. Plan to transition to CR release of oxcarbazepine, and if episodes continue option would be to either increase Oxtellar or consider progesterone only OCP, as episodes seem to cluster around menses. Plan: - Change Trileptal to Oxtellar - (1) 600 mg tablet twice daily - Continue to keep track of seizures and notify our office if Meghan has any more seizures. - Follow up in [address] Recinos Basic seizure precautions 1. No climbing to heights over 4-6 feet 2. No un supervised sitting in water of any kind, including bath tubs and swimming pools. Showers are preferred, no locked doors. 3. No operating anything with a motor, including lawn mowers, ATV, or cars 4. No power tools 5. You CAN ride a bicycle on a quiet street with a helmet only Encounters Date Type Department Care Team Description 10/04/2024 Telephone [facility] - Neurology [address] [place] [phone] Ronnie Nguyen, KIARA-ENERGY CROP FARMER Letter 10/04/2024 Orders Only [facility] - Neurology [address] [place] [phone] Ronnie Nguyen, AIR MOTOR REPAIRER-ENERGY CROP FARMER from Last 3 Months Family History Medical History Relation Name Comments ADHD Neg Hx Allergies Neg Hx Aneurysm Neg Hx Asthma Neg Hx Autoimmune Disease Neg Hx Bipolar Disorder Neg Hx CVA<55(male) Neg Hx CVA<65(female) Neg Hx Cancer - Breast Neg Hx Cancer - Colon Neg Hx Cancer - Other Neg Hx Cancer - Ovarian Neg Hx Cancer - Pancreatic Neg Hx Cancer - Prostate Neg Hx Childhood Hearing Disorder Neg Hx Clotting Disorder Neg Hx Depression Neg Hx Diabetes Neg Hx Eczema Neg Hx Genetic Neg Hx Heart defect Neg Hx Hypercholesterolemia Neg Hx Hypertension Neg Hx MS<55(male) Neg Hx MS<65(female) Neg Hx Mental Health Neg Hx Migraine Neg Hx Osteoporosis Neg Hx Seizures Neg Hx Sudd. <30 Neg Hx Thyroid Disease Neg Hx Ulcerative Colitis Neg Hx Social History Tobacco Use Types Packs/Day Years [...] Mass Index 20.13 09/07/2024 12:51 PM CDT Plan of Treatment Upcoming Encounters Date Type Department Care Team (Late st Contact Info) Description 01/11/2025 11:30 AM NURSING PROGRAM DIRECTOR [facility] [address] [place] [address] [phone] Corina Lemus PA-C [address] [place] [address] 04/06/2025 9:30 AM CDT [facility] Neurology [address] [place] [address] [phone] Laci Trejo, [address] [place] [address] [place] [phone] Health Maintenance Due Date Last Done Comments PAP SMEAR 2002 HIV SCREENING 2017 HPV VACCINE (1 - 3-dose series) 2017 CHLAMYDIA/GONORRHEA SCREENING 2018 MENINGOCOCCAL (Group B) VACC INE (1 of 2 - Standard) 2018 HEPATITIS C SCREENING 08/08/2020 DTAP/TDAP/TD VACCINES (1 - Tdap) 2021 HEPATITIS B VACCINE (1 of 3 - 19+ 3-dose series) 2021 COVID-19 VACCINE (1 - 2023-2 5 season) 2024 INFLUENZA VACCINE (#1) 2024 DEPRESSION SCREENING 11/24/2024 ZOSTER VACCINE (1 of 2) 2052 HIB VACCINE Aged Out No longer eligi ble based on patient's age to complete this topic MENINGOCOCCAL VACCINE Aged Out No louise aldo eligible based on patient's age to complete this topic PNEUMOCOCCAL VACCINE Aged Out No long er eligible based on patient's age to complete this topic Care Teams Dog Day Care Attendant Relationship Specialty Start Date End Date Tiki Jacobs MD [address] [place] [address] PCP - General Family Medicine 04/08/17
--- OUTSIDE RECORDS SUMMARY | 2024-12-26 16:20 | XMS_ITS | Clinical Summary ---
Author Organization [facility] [address] Address [address] [place] [phone] Care Team Providers Care Trench Trimmer Fine Name Role Phone Unavailable Primary Care Provider Unavailabl e Social History Tobacco Use Types Packs/Day Years Used Date Smoking Tobacco: Never Assessed Comments Unknown Sex and Gender Information Value Date Recorded Sex Assigned at Not on file Legal Sex Female 11:22 AM BULLDOZER PRESS OPERATOR Gender Identity Not on file Sexual Orientation Not on file Plan of Treatment Upcoming Encounters Date Type Department Care Team (Late st Contact Info) Description 04/19/2025 1:00 PM CDT Office Visit [facility] [address] [place] [address] Rea Bryson MD [address] [place] [address] Health Maintenance Due Date Last Done Comments CHLAMYDIA SCREENING (ANNUAL) 11-24 YEARS 2013 HPV VACCINES (1 - 3-dose series) 2017 DTAP/TDAP/TD VACCINES (1 - Tdap) 2021 HEPATITIS B VACCINES (1 of 3 - 19+ 3-dose series) 2021 CERVICAL CANCER SCREENING 2023 INFLUENZA VACCINE (#1) 2024 PNEUMOCOCCAL VACCINE 0-64 YEARS Aged Out No longer eligible based on patient's age to complete this topic
--- OUTSIDE RECORDS SUMMARY | 2024-12-26 16:20 | XMS_ITS | Encounter Summary ---
Author Organization [facility] Address [address] [place] [address] Care Team Providers Care Waste Disposal Plant Operator Name Role Phone Tiki Jacobs MD Primary Care Provider U bonita Reason for Visit * Reason Onset Date Comments Results 06/06/2017 Please give dad a call with lab results. Encounter Details Date Type Department Care Team ([facility] Contact Info) Description 06/06/2017 Telephone [facility] - Endocrinology [address] [place] [phone] Amos Pemberton MD [address] [place] [phone] Results (Please give dad a call with lab results.) Social History Tobacco Use Types Packs/Day Years Used Date Smoking Tobacco: Never Sex and Gender Information Value Date Recorded Sex Assigned at Female 04/10/2023 12:28 PM CDT Gender Identity Not on file Sexual Orientation Not on file documented as of this encounter Plan of Treatment Upcoming Encounters Date Type Department Care Team (Late Contact Info) Description 01/11/2025 11:30 AM SONAR WATCHSTANDER Office Visit [facility] - Neurology [address] [place] [phone] Corina Lemus PA-C [address] [place] [address] 04/06/2025 9:30 AM CDT Office Visit [facility] [address] [place] [phone] Laci Trejo, DO [address] [place] [phone] documented as of this encounter Visit Diagnoses Not on filedocumented in this encounter Care Teams Waste Disposal Plant Operator Relationship Specialty Start Date End Date Tiki Jacobs MD [address] [place] [address] PCP - General Family Medicine 04/08/17 documented as of this encounter
--- OUTSIDE RECORDS SUMMARY | 2024-12-26 16:20 | XMS_ITS | Encounter Summary ---
Author Organization [facility] Address [address] [facility] [place] [address] Care Team Providers Care Sports Management Intern Name Role Phone Tiki Jacobs MD Primary Care Provider U bonita Encounter Details Date Type Department Care Team (Late st Contact Info) Description 08/10/2024 Telephone [facility] Neurology [address] [place] [address], [place] [phone] Laci Trejo, [address] [place] [address] [place] [phone] Social History Tobacco Use Types Packs/Day Years [...] on file documented as of this encounter Functional Status Functional Status Response Date of Assess ment Is person deaf or have serious hearing difficult y? No 06/01/2018 Is person blind or have serious difficulty seein g? No 06/01/2018 Does person have serious dif ficulty walking/climbing stairs? No 06/01/2018 Does person have difficulty dressing/bathing? No 06/01/2018 Does person have difficulty doing errands alone? No 06/01/2018 Cognitive Status Response Date of Assessm ent Does person have difficulty concentrating/remembering/making decisions? No 06/01/2018 documented as of this encounter Miscellaneous Notes * Telephone Encounter - Alysa Pettit - 08/10/2024 1:10 PM CDT Pt is calling in today because her paperwork was done incompletely and needs them to be done and when she tried calling no response so would like a callback at [phone]. documented in this encounter Plan of Treatment Upcoming Encounters Date Type Department Care Team (Late st Contact Info) Description 01/11/2025 11:30 AM FRANCHISE SALES DIRECTOR Office Visit [facility] - Neurology [address] [place] [address], [place] [phone] Corina Lemus PA-C [address] [place] [phone] 04/06/2025 9:30 AM CDT Office Visit [facility] - Neurology [address] [place] [address], [place] [phone] Laci Trejo, DO [address] [place] [address] [place] [address] documented as of this encounter Visit Diagnoses Not on filedocumented in this encounter Care Teams Sports Management Intern Relationship Specialty Start Date End Date Tiki Jacobs MD [address] [place] [address] PCP - General Family Medicine 04/08/17 documented as of this encounter
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
[2024-12-26 16:56] VITALS: BP 104/90; PULSE 75; RESP 16; TEMP 36.4; O2SAT 99
--- NOTE | 2024-12-26 20:00 | ECG_ITS ---
Test Date: 2024-12-26 20:10:25 Measurements Intervals [place] Rate: 74 P: 52 UT: 233 QRS: 86 QRSD: 89 T: 59 QT: 406 QTc: 453 Interpretive Statements SINUS RHYTHM WITH FIRST DEGREE AV BLOCK POSSIBLE RIGHT VENTRICULAR CONDUCTION DELAY BORDERLINE ECG No previous ECG available for comparison Electronically Signed On 12-27-2024 06:59:14 PRINCIPAL ANDROID DEVELOPER by Devon Buchanan D.O.
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
[2024-12-26] MEDS: ACETAMINOPHEN 500 MG TABLET 1000 MG PO (21:50)
== END 2024-12-26 23:44 | disposition home or self-care (01) ==
PROVIDERS: Emergency Provider Physician Assistant; PCP Family Medicine
DX: S09.90XA Unspecified injury of head, initial encounter (principal); S16.1XXA Strain of muscle, fascia and tendon at neck level, initial encounter; S20.219A Contusion of unspecified front wall of thorax, initial encounter; I44.0 Atrioventricular block, first degree; R94.31 Abnormal electrocardiogram [ECG] [EKG]; R91.1 Solitary pulmonary nodule; V43.52XA Car driver injured in collision with other type car in traffic accident, initial encounter
CPT/HCPCS: 70450; 71250; 72110; 72125; 93005; 99284; A9270